=== PATIENT | male | born 1960 | race Caucasian/White ===

== ENCOUNTER 2017-06-30 12:57 | Emergency (ER) | payer OTHER, MEDICAID ==
[~2017-06-30] VITALS: Ht 167.6 cm; Wt 116.1 kg
[~2017-06-30 12:57] MED LIST: ALBU2.5V7 INH; ARIP2TAB9 PO; ASCO-339 PO; ASPI81TA2 PO; BREO ELLIPTA INH; BUSP15TA3 PO; CARB200T PO; DIABETIC TUSSIN PO; DIVA500T7 PO; DOCU-144 PO; GABA-531 PO; GLIM2TAB58 PO; GLIM4TAB PO; GLU500 PO; IBUP-1969 PO; LEVO100T9 PO; MULT1CAP34 PO; OLME1TAB17 PO; RISP1TAB7 PO; SAXA5TAB PO; SIMV10TA2 PO; TOPI100T11 PO
[2017-06-30 13:07] VITALS: BP_SYST 144
[2017-06-30] MEDS ORDERED: CARBAMAZEPINE 200 MG (13:19)
[2017-06-30] MEDS ORDERED: DIVALPROEX SODIUM 500 MG (13:19)
[2017-06-30] MEDS ORDERED: SIMVASTATIN 10 MG TABS (13:20)
[2017-06-30] MEDS ORDERED: TOPIRAMATE 100 MG (13:20)
[2017-06-30] MEDS ORDERED: RISPERIDONE 3 MG (13:20)
[2017-06-30] MEDS ORDERED: BACITRACIN 1 GM OINT TP ONE (13:30)
[2017-06-30] MEDS ORDERED: ACETAMINOPHEN 500 MG TABLET PO ONE (14:15)
[2017-06-30] MEDS ORDERED: LIDOCAINE 1% 10 MG/ML, 20 ML MDV INJ ONE (14:45)
[2017-06-30] MEDS ORDERED: DIPH-TET-PERTUS Vaccine 0.5 ML VIAL (ADACEL) I.M. ONE (15:30)
== END 2017-06-30 16:25 | disposition home or self-care (01) ==
LOC: SED 12:57
DX: S01.411A Laceration without foreign body of right cheek and temporomandibular area, initial encounter (principal); G95.20 Unspecified cord compression; R03.0 Elevated blood-pressure reading, without diagnosis of hypertension; E11.9 Type 2 diabetes mellitus without complications; I10 Essential (primary) hypertension; E03.9 Hypothyroidism, unspecified; Z79.899 Other long term (current) drug therapy; W18.30XA Fall on same level, unspecified, initial encounter; Y93.01 Activity, walking, marching and hiking; Y92.89 Other specified places as the place of occurrence of the external cause; Y99.8 Other external cause status
CPT/HCPCS: 12011; 36415; 70450; 70486; 72131; 82962; 84484; 90471; 90715; 93005; 99285; J2001